=== PATIENT | female | born 1990 | race African-American/Black ===

== ENCOUNTER 2017-03-08 21:12 | Emergency (ER) | payer SELFPAY ==
[~2017-03-08] VITALS: Ht 167.6 cm; Wt 79.0 kg
[~2017-03-08 21:12] MED LIST: CETI-193 PO; EPIN0.3P3 IM
[2017-03-08 21:18] VITALS: BP 118/63
[2017-03-08] MEDS ORDERED: IBUPROFEN 600 MG TABLET PO ONE (22:15)
[2017-03-08] MEDS ORDERED: SULFAMETHOX/TRIMETH DS 800-160 MG/TABLET PO ONE (22:15)
== END 2017-03-08 23:02 | disposition home or self-care (01) ==
LOC: EMS 21:15
DX: L02.416 Cutaneous abscess of left lower limb (principal); Z91.013 Allergy to seafood; Z88.5 Allergy status to narcotic agent; Z91.018 Allergy to other foods; Z87.891 Personal history of nicotine dependence
CPT/HCPCS: 10060; 99283